=== PATIENT | female | born 2000 | race Two or more races ===

== ENCOUNTER 2022-06-19 16:58 | Emergency (ER) | payer OTHER ==
[~2022-06-19] VITALS: Ht 157.5 cm; Wt 47.6 kg
[2022-06-19] MEDS ORDERED: CLEOCIN HCL300 MG PO (19:39)
[2022-06-19] MEDS ORDERED: INTESTINEX680 M1 PO (19:39)
[2022-06-19] MEDS ORDERED: PEPCID AC20 MG PO (19:39)
== END 2022-06-19 20:25 | disposition home or self-care (01) ==
LOC: ER 16:58 → EMR PED 17:22
DX: S30.861A Insect bite (nonvenomous) of abdominal wall, initial encounter (principal); W57.XXXA Bitten or stung by nonvenomous insect and other nonvenomous arthropods, initial encounter; Y93.9 Activity, unspecified; Y92.9 Unspecified place or not applicable; Y99.9 Unspecified external cause status; Z20.2 Contact with and (suspected) exposure to infections with a predominantly sexual mode of transmission; Z88.0 Allergy status to penicillin

== ENCOUNTER 2022-06-22 17:19 | Inpatient (IN) | payer OTHER ==
[~2022-06-22] VITALS: Ht 157.5 cm; Wt 47.7 kg
[~2022-06-22 17:19] MED LIST: CLEOCIN HCL300 MG PO; INTESTINEX680 M1 PO; PEPCID AC20 MG PO
--- NOTE | 2022-06-22 17:47 | NUR ---
SE RECIBE PTE ALERTA Y ORIENTADA X3 QUIEN REFIERE TENER CELULITIS EN AREA INFERIOR ABDOMINAL. PTE VISITO ER EL MIERCOLES POR LO MISMO Y LE RECETARON ANTIBIOTICOS PO LOS CUALES ANCA REFIERE QUE NO VICENTE [facility]. REFIERE QUE AREA ESTA SUPURANDO. SE MONITOREAN S/V Y SE UBICA EN SP.
--- NOTE | 2022-06-22 19:47 | NUR ---
PACIENTE ALERTA Y ORIENTADA POR BALDEMAR. SE ORIENTA DE TRATAMIEBNTO ALEXANDER ORDEN MEDICA Y DE PROCESO DE ADMISION. REFIERE ENTENDER. SE CANALIZA, SE FADI MUESTRAS Y SE ADMONISTRAN MEDICAMENTOS CON MEDIDAS ASEPTICAS CORRESPONDIENTES. SE COLOCA EN CAMA #21 CON BARANDAS ELEVADAS. SE MONITOREA POR CAMBIOS SIGNIFICATIVOS.
== END 2022-06-24 12:04 | disposition home or self-care (01) | DRG 603 ==
LOC: ER 17:19 → EMR PED 17:24 → PED 18:41
PROVIDERS: ADMIT Emergency Medicine; ATTEND Emergency Medicine
PROC: 0HD7XZZ Extraction of Abdomen Skin, External Approach (ICD-10-PCS; principal; 2022-06-24)
DX: L02.211 Cutaneous abscess of abdominal wall (principal); B95.61 Methicillin susceptible Staphylococcus aureus infection as the cause of diseases classified elsewhere; S30.861A Insect bite (nonvenomous) of abdominal wall, initial encounter; Z20.822 Contact with and (suspected) exposure to COVID-19